=== PATIENT | female | born 1965 | race Caucasian/White ===

== ENCOUNTER → 2016-04-06 | Outpatient (CLI) | payer BC ==
--- NOTE | 2016-04-06 10:59 | CT ---
EXAMINATION TYPE: CT neck chest w con DATE OF EXAM: 04/06/2016 9:00 AM COMPARISON: CT chest 07 April 2011 HISTORY: Patient complains of chronic difficulty breathing and abnormal lab values. CT DLP: 566.9 mGycm Automated exposure control for dose reduction was used. CONTRAST: CT scan of the neck and chest is performed following with IV Contrast, patient injected with 100 mL o f Omnipaque 300. Axial images are obtained, coronal and sagittal reformatted images are reviewed. FINDINGS: Thyroid gland shows normal density. Airway: No gross abnormality seen. The level the true and false cords is normal. Parotid/submandibular glands: No gross abnormality seen. Carotid/Vascular Structures: Internal carotid arteries, common carotid arteries are patent. 3 super a ortic branch vessels are present. Collateral venous vasculature enhancement noted about the lower cer vical spine. No evident of venous stenosis centrally however. Osseous Structures: Unremarkable. Chest: There is no mediastinal, axillary, or hilar adenopathy. Bilateral breast prostheses are presen t. No endobronchial lesion, pleural or pericardial effusion. No evident lung mass. Some minimal depen dent atelectatic changes are suspected. Upper abdomen is unremarkable. Thoracic aorta is patent. No e vident aneurysm or dissection. Pulmonary arteries show no filling defects. Mild degenerative disc harini nges in the visualized spine, there are multilevel Schmorl's nodes present IMPRESSION: No abnormality evident to account for patient's symptoms.
== END | disposition home or self-care (01) ==
LOC: RADCTMAIN 08:30
PROVIDERS: ATTEND Internal Medicine Rheumatology
DX: E06.3 Autoimmune thyroiditis (principal)
CPT/HCPCS: 70491; 71260; Q9967

== ENCOUNTER → 2016-04-15 | Outpatient (CLI) | payer BC ==
[2016-04-16 14:14] LABS: C-ANCA <1:20 Titer (<1:20); P-ANCA <1:20 Titer (<1:20)
== END | disposition home or self-care (01) ==
LOC: LABWHC1 12:20
PROVIDERS: ATTEND Nurse Practitioner Family
DX: M35.9 Systemic involvement of connective tissue, unspecified (principal)
CPT/HCPCS: 36415; 86255; 86376; 86431

== ENCOUNTER → 2016-07-27 | Outpatient (CLI) | payer BC ==
--- NOTE | 2016-07-28 07:34 | MM ---
Reason for exam: screening (asymptomatic). Last mammogram was performed 1 year and 1 month ago. History: Patient is postmenopausal. Family history of breast cancer in aunt at age 60 and breast cancer in mother at age 60. Saline implants in both breasts, 2005. Implants in both breasts, 1988. Took hormonal contraceptives for 11 years beginning at age 38. Physical Findings: A clinical breast exam by your physician is recommended on an annual basis and results should be correlated with mammographic findings. MG Screening Mammo Implant/CAD Bilateral CC, MLO, and ID view(s) were taken. Prior study comparison: June 27, 2015, bilateral MG 3d screen mammo imp/cad. May 31, 2014, bilateral MG screening mammo w CAD. There are scattered fibroglandular densities. No significant changes when compared with prior studies. ASSESSMENT: Benign, BI-RAD 2 RECOMMENDATION: Routine screening mammogram of both breasts in 1 year.
== END | disposition home or self-care (01) ==
LOC: RADMAMWWP 13:01
PROVIDERS: ATTEND Family Medicine
DX: Z12.31 Encounter for screening mammogram for malignant neoplasm of breast (principal)

== ENCOUNTER 2016-12-31 10:21 | Day surgery (SDC) | payer BC ==
[2016-12-30 11:49] VITALS: BMI 21.9
[~2016-12-31 10:21] MED LIST: LACTATED RINGERS 1,000 ML IV SCH; LIDOCAINE 1% 20 ML VIAL (10MG/ML) FOR IV START INTRADERMA PRN
[2016-12-31 11:07] VITALS: RESP 16; TEMP 98.1
[2016-12-31] MEDS ORDERED: PROPOFOL 10 MG/ML 20 ML VIAL IV ONE (11:21)
[2016-12-31] MEDS ORDERED: LIDOCAINE 1% INJ 10MG/ML (20 ML MDV) ONE (11:21)
--- NOTE | 2016-12-31 11:57 | P.PCN ---
Date of Procedure: 12/31/16 Procedure(s) Performed: Procedure: Esophagogastroduodenoscopy and biopsy. Preoperative diagnosis: Globus sensation, suspected esophagitis. Postoperative diagnosis: 1. Small sliding hiatal hernia with no obvious esophagitis or complicated reflux disease. 2. Mild antral gastritis and minimal duodenitis. 3. Multiple biopsies obtained from the duodenum, antrum and esophagus. Preparation and sedation: Was provided by anesthesia. Brief clinical history: The patient is a 51-year-old female who is scheduled for this evaluation because of globus sensation that she has been experiencing for the last year or so. She denies dysphagia, odynophagia or unintentional weight loss. She has been treated for oral candidiasis without improvement. She takes PPI on and off. This evaluation is to assess for esophagitis or complicated reflux disease or other pathology. Procedure: With the patient on her left lateral decubitus position and after informed consent and adequate sedation, I passed the Olympus-GIF 160 video upper endoscope through the cricopharyngeus down the esophagus. GE junction was around 36-37 cm from the incisors and there was a small sliding hiatal hernia. The endoscope was then passed into the stomach which was insufflated with air and inspected in detail including the retroflex view in the cardia. Finally, the endoscope was passed through the pylorus into the duodenum. Pyloric channel, duodenal bulb, post bulbar area and descending duodenum showed no ulcers or erosions. There was minimal erythema in the duodenum. Antrum showed some mottling and erythema but no ulcers or erosions. The esophagus did not show any erosions, ulcers, strictures or Fine's esophagus. I obtained biopsies from the duodenum, antrum and esophagus then the endoscope was withdrawn. The patient tolerated the procedure well. Plan: The patient was reassured. Will await pathology results. She will follow -up in the office later this month and we will keep you updated on her progress.
[2016-12-31 12:05] VITALS: PULSE 55
[2016-12-31 12:51] VITALS: BP 132/53
== END 2016-12-31 12:55 | disposition home or self-care (01) ==
LOC: ORWHC2ENDO 10:21
DX: K21.0 Gastro-esophageal reflux disease with esophagitis (principal); K29.50 Unspecified chronic gastritis without bleeding; B37.0 Candidal stomatitis; K44.9 Diaphragmatic hernia without obstruction or gangrene; K29.80 Duodenitis without bleeding; E07.9 Disorder of thyroid, unspecified; Z79.82 Long term (current) use of aspirin; Z79.899 Other long term (current) drug therapy
CPT/HCPCS: 88305; 88342; 43239; J2001; J2704

== ENCOUNTER → 2017-07-28 | Outpatient (CLI) | payer BC ==
--- NOTE | 2017-07-29 14:03 | MM ---
Reason for exam: screening (asymptomatic). Last mammogram was performed 1 year ago. History: Patient is postmenopausal. Family history of breast cancer in aunt at age 60 and breast cancer in mother at age 60. Saline implants in both breasts, 2005. Implants in both breasts, 1988. Took hormonal contraceptives for 11 years beginning at age 38. Physical Findings: A clinical breast exam by your physician is recommended on an annual basis and results should be correlated with mammographic findings. MG Screening Mammo Implant/CAD Bilateral CC, MLO, and ID view(s) were taken. Prior study comparison: July 27, 2016, bilateral MG screening mammo implant/CAD. June 27, 2015, bilateral MG 3d screen mammo imp/cad. There are scattered fibroglandular densities. Bilateral implants are intact. ASSESSMENT: Benign, BI-RAD 2 RECOMMENDATION: Routine screening mammogram of both breasts.
== END | disposition home or self-care (01) ==
LOC: RADMAMWWP 09:47
PROVIDERS: ATTEND Family Medicine
DX: Z12.31 Encounter for screening mammogram for malignant neoplasm of breast (principal)
CPT/HCPCS: 77067

== ENCOUNTER → 2017-12-29 | Outpatient (CLI) | payer BC ==
--- NOTE | 2017-12-29 14:12 | CT ---
EXAMINATION TYPE: CT brain wo con DATE OF EXAM: 12/29/2017 HISTORY: posterior rt side head swelling /headaches CT DLP: 1017.9 mGycm. Automated Exposure Control for Dose Reduction was Utilized. TECHNIQUE: CT scan of the head is performed without contrast. COMPARISON: None. FINDINGS: There is no acute intracranial hemorrhage or midline shift identified. There is diffuse v entricular and sulcal prominence consistent with diffuse age-related cerebral atrophy. There is low- attenuation in the periventricular white matter consistent with chronic small vessel ischemic change. Enlarged fourth ventricle is noted out of proportion to more superior ventricular system. Etiology and significance uncertain. Correlation with old outside CT or MRI is advised. The globes are intact and the visualized sinuses are clear. IMPRESSION: No acute intracranial hemorrhage or midline shift. There is background mild diffuse age -related cerebral atrophy and chronic small vessel ischemic change noted. Prominent fourth ventricle of uncertain significance or etiology.
== END | disposition home or self-care (01) ==
LOC: RADCTMAIN 13:38
PROVIDERS: ATTEND Family Medicine
DX: G31.1 Senile degeneration of brain, not elsewhere classified (principal); I67.82 Cerebral ischemia
CPT/HCPCS: 70450

== ENCOUNTER 2018-07-05 11:23 | Emergency (ER) | payer BC ==
--- NOTE | 2018-07-05 12:37 | ED ---
General Adult HPI - General Chief complaint: Abdominal Pain Stated complaint: poss bowel obstruction Time Seen by Provider: 07/05/18 11:55 Source: patient, RN notes reviewed Mode of arrival: ambulatory Limitations: no limitations - History of Present Illness Initial comments: Patient 53-year-old female presented to the emergency room today with a chief complaint of abdominal pain. Patient was much last week. She does not that she is passed some gas but just small amounts per Dr. Earline pelaez today but was unable to have any bowel movement. Patient states that she's been expressing a headache and some upper back pain over the last week which is not unusual for persistent that the headache is gone and the back pain is improved. She states she was just using [id number] medications for this. She states that she is experiencing some lower abdominal pain today that she feels both on left right side. Patient states that this pain is new. Had in the past. She denies any complaints or symptoms at this time. Patient denies any recent fever, chills, shortness of breath, chest pain, back pain, nausea or vomiting, numbness or tingling, headaches or visual changes, or any other complaints. - Related Data Home Medications Medication Instructions Recorded Confirmed Indapamide [Lozol] 2.5 mg PO DAILY 07/05/18 07/05/18 Meclizine [Antivert] 25 mg PO TID PRN 07/05/18 07/05/18 Vitamin C/Biotin [Hair, Skin and 1 tab PO DAILY 07/05/18 07/05/18 Nails] Allergies Allergy/AdvReac Type Severity Reaction Status Date / Time No Known Allergies Allergy Verified 07/05/18 11:52 Review of Systems ROS Statement: Those systems with pertinent positive or pertinent negative responses have been documented in the HPI. ROS Other: All systems not noted in ROS Statement are negative. Past Medical History Past Medical History: Blood Disorder, GERD/Reflux, Thyroid Disorder Additional Past Medical History / Comment(s): FACTOR 5, frequent IBS symptoms, feels like lump in throat all the time, "yeast" in mouth History of Any Multi-Drug Resistant Organisms: None Reported Past Surgical History: Breast Surgery, Hysterectomy, Orthopedic Surgery Additional Past Surgical History / Comment(s): NASAL SX, HAND SX, D&C, breast implants Past Anesthesia/Blood Transfusion Reactions: No Reported Reaction Past Psychological History: Anxiety Smoking Status: Never smoker Past Alcohol Use History: None Reported Past Drug Use History: None Reported - Past Family History Mother Family Medical History: Blood Disorder, Cancer, Deep Vein Thrombosis (DVT), Pulmonary Embolus General Exam - General Exam Comments Initial Comments: General: The patient is awake and alert, in no distress, and does not appear acutely ill. Eye: There is normal conjunctiva bilaterally. No signs of icterus. Neck: The neck is supple, there is no tenderness or JVD. Cardiovascular: There is a regular rate and rhythm. No murmur, rub or gallop is appreciated. Respiratory: Lungs are clear to auscultation, respirations are non-labored, breath sounds are equal. No wheezes, stridor, rales, or rhonchi. Gastrointestinal: Admits soft on palpation. Patient does have tenderness to the left and right lower quadrants. Mild tenderness. No rebound, guarding or CVA tenderness. Musculoskeletal: Normal ROM, no tenderness. Strength 5/5. Sensation intact. Neurological: A&O x 3. CN II-XII intact, There are no obvious motor or sensory deficits. Coordination appears grossly intact. Speech is normal. Skin: Skin is warm and dry and no rashes or lesions are noted. Psychiatric: Cooperative, appropriate mood & affect, normal judgment. Limitations: no limitations Course Vital Signs 07/05/18 11:49 Temperature 98.4 F Pulse Rate 79 Respiratory 20 Rate Blood Pressure 119/75 O2 Sat by Pulse 99 Oximetry Medical Decision Making - Medical Decision Making Patient reexamined at this time shows no signs of distress. She is resting comfortably. She states that she's tried have bowel movement here in the emergency room is passing water at this time. She believes from enema which did earlier. Patient's labs been reviewed are unremarkable. Patient was offered enema here the emergency room but she has declined. She states she would like to try laxative. She'll be given magnesium citrate prior to discharge. She is advised to drink glass water with this. Advised follow-up family doctor next 2 days. Advised return to emergency room for any other concerns. - Lab Data Result diagrams: 07/05/18 12:30 07/05/18 12:30 Lab Results 07/05/18 07/05/18 Range/Units 12:30 12:30 WBC 9.6 (3.8-10.6) k/uL RBC 5.20 (3.80-5.40) m/uL Hgb 14.6 (11.4-16.0) gm/dL Hct 44.2 (34.0-46.0) % MCV 84.9 (80.0-100.0) fL MCH 28.1 (25.0-35.0) pg MCHC 33.1 (31.0-37.0) g/dL RDW 14.3 (11.5-15.5) % Plt Count 208 (150-450) k/uL Neutrophils % 87 % Lymphocytes % 8 % Monocytes % 4 % Eosinophils % 1 % Basophils % 0 % Neutrophils # 8.3 H (1.3-7.7) k/uL Lymphocytes # 0.7 L (1.0-4.8) k/uL Monocytes # 0.4 (0-1.0) k/uL Eosinophils # 0.1 (0-0.7) k/uL Basophils # 0.0 (0-0.2) k/uL Sodium 137 (137-145) mmol/L Potassium 3.5 (3.5-5.1) mmol/L Chloride 97 L (98-107) mmol/L Carbon Dioxide 33 H (22-30) mmol/L Anion Gap 7 mmol/L BUN 17 (7-17) mg/dL Creatinine 0.62 (0.52-1.04) mg/dL Est GFR (CKD-EPI)AfAm >90 (>60 ml/min/1.73 sqM) Est GFR (CKD-EPI)NonAf >90 (>60 ml/min/1.73 sqM) Glucose 111 H (74-99) mg/dL Calcium 10.3 H (8.4-10.2) mg/dL Total Bilirubin 0.6 (0.2-1.3) mg/dL AST 46 H (14-36) U/L ALT 61 H (9-52) U/L Alkaline Phosphatase 73 (38-126) U/L Total Protein 7.3 (6.3-8.2) g/dL Albumin 4.7 (3.5-5.0) g/dL Disposition Clinical Impression: Abdominal pain Disposition: HOME SELF-CARE Condition: Good Instructions (If sedation given, give patient instructions): Abdominal Pain (ED) Additional Instructions: Please use magnesium citrate with large glass water and follow-up family doctor the next 2 days. Return here to the emergency room if any symptoms increase or worsen or for any other concerns. Is patient prescribed a controlled substance at d/c from ED?: No Referrals: Giovani Lafleur DO [Primary Care Provider] - 1-2 days Time of Disposition: 14:13
[2018-07-05 12:45] LABS: Basophils % (A) 0 %; Eosinophils # (A) 0.1 k/uL (0-0.7); Eosinophils % (A) 1 %; HCT 44.2 % (34.0-46.0); HGB 14.6 gm/dL (11.4-16.0); Lymphocytes # (A) 0.7 k/uL (1.0-4.8); Lymphocytes % (A) 8 %; MCH 28.1 pg (25.0-35.0); MCHC 33.1 g/dL (31.0-37.0); MCV 84.9 fL (80.0-100.0); Mean Platelet Volume 7.9; Monocytes # (A) 0.4 k/uL (0-1.0); Monocytes % (A) 4 %; Neutrophils # (A) 8.3 k/uL (1.3-7.7); Neutrophils % (A) 87 %; Platelet Count 208 k/uL (150-450); RDW 14.3 % (11.5-15.5); WBC 9.6 k/uL (3.8-10.6)
--- NOTE | 2018-07-05 12:59 | XR ---
EXAMINATION TYPE: XR KUB DATE OF EXAM: 07/05/2018 CLINICAL DATA: 53-year-old female abdominal pain and diarrhea, PHH COMPARISON: None FINDINGS: Lung bases are clear. No evidence for free intraperitoneal air. No dilated small bowel. Scattered air and stool seen throughout the colon extending distally into the rectum. Scattered small bowel air-fluid levels are present throughout the colon. Mild overall stool burden. No suspicious calcifications identified. IMPRESSION: Mixed solid and liquid stool throughout the colon. Correlate for enteritis. No evidence for free air or bowel obstruction.
[2018-07-05 13:02] LABS: ALT 61 U/L (9-52); AST 46 U/L (14-36); Albumin 4.7 g/dL (3.5-5.0); Alkaline Phosphatase 73 U/L (38-126); Anion Gap 7 mmol/L; Blood Urea Nitrogen 17 mg/dL (7-17); Calcium 10.3 mg/dL (8.4-10.2); Carbon Dioxide 33 mmol/L (22-30); Chloride 97 mmol/L (98-107); Glucose 111 mg/dL (74-99); Potassium 3.5 mmol/L (3.5-5.1); Sodium 137 mmol/L (137-145); Total Bilirubin 0.6 mg/dL (0.2-1.3); Total Protein 7.3 g/dL (6.3-8.2)
[2018-07-05] MEDS ORDERED: MAGNESIUM CITRATE 296 ML BOTTLE PO ONE (14:13)
[2018-07-05] MEDS ORDERED: KETOROLAC 30 MG/ML 1 ML VIAL IVP STA (14:49)
[2018-07-05 15:11] VITALS: BP 123/73; PULSE 78; RESP 18; TEMP 98.2
== END 2018-07-05 15:08 | disposition home or self-care (01) ==
LOC: EC 11:23
DX: R10.31 Right lower quadrant pain (principal); R10.32 Left lower quadrant pain; R51 Headache; M54.9 Dorsalgia, unspecified; Z79.899 Other long term (current) drug therapy; Z87.19 Personal history of other diseases of the digestive system; Z53.20 Procedure and treatment not carried out because of patient's decision for unspecified reasons
CPT/HCPCS: 36415; 80053; 85025; 74018; 99284; 96374; J1885

== ENCOUNTER → 2018-08-05 | Outpatient (CLI) | payer BC ==
--- NOTE | 2018-08-08 13:31 | MM ---
Reason for exam: screening (asymptomatic). Last mammogram was performed 1 year ago. History: Patient is postmenopausal. Family history of breast cancer in aunt at age 60 and breast cancer in mother at age 60. Saline implants in both breasts, 2005. Implants in both breasts, 1988. Took hormonal contraceptives for 11 years beginning at age 38. Physical Findings: A clinical breast exam by your physician is recommended on an annual basis and results should be correlated with mammographic findings. MG 3D Screen Mammo Imp/Cad Bilateral CC, MLO, and ID view(s) were taken. Prior study comparison: July 28, 2017, bilateral MG screening mammo implant/CAD. July 27, 2016, bilateral MG screening mammo implant/CAD. The breast tissue is heterogeneously dense. This may lower the sensitivity of mammography. Bilateral saline implants. Central asymmetric density left MLO view does not persist on 3D or non-implant displacement view. No significant changes when compared with prior studies. ASSESSMENT: Benign, BI-RAD 2 RECOMMENDATION: Routine screening mammogram of both breasts in 1 year.
== END | disposition home or self-care (01) ==
LOC: RADMAMWWP 13:34
PROVIDERS: ATTEND Family Medicine
DX: Z12.31 Encounter for screening mammogram for malignant neoplasm of breast (principal)
CPT/HCPCS: 77063; 77067

== ENCOUNTER → 2018-08-15 | Outpatient (CLI) | payer BC ==
--- NOTE | 2018-08-15 12:07 | BD ---
EXAMINATION TYPE: Axial Bone Density DATE OF EXAM: 08/15/2018 COMPARISON: 12/30/2015 CLINICAL HISTORY: M 89.9 Height: 66 IN Weight: 138 LBS FRAX RISK QUESTIONS: Secondary Osteoporosis: 3. 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 PT STATES IT CAUSES TRANSLUCENT BONES. RISK FACTORS HISTORY OF: Active: YES Diet low in dairy products/other sources of calcium: YES Postmenopausal woman: AGE 41 MEDICATIONS: Osteoporosis Medications: NOT NOW Which medication: Prolia FORTEO How Long: APPROX AGE 45-48 Additional Medications: WATER PILL FOR EARS, EAR MEDICATION, PREDNISONE FOR 5 DAYS EXAM MEASUREMENTS: Bone mineral densitometry was performed using the [employer] System. Bone mineral density as measured about the Lumbar spine is: ----- L1-L4(G/cm2): 0.952 T Score Values are as follows: ----- L2: -1.8 ----- L3: -1.6 ----- L4: -2.0 ----- L1-L4: -1.9 Bone mineral density has: Increased 5.7% since study of: 12/30/2015 Bone mineral density about the R hip (g/cm2): 0.753 Bone mineral density about the L hip (g/cm2): 0.755 T Score values are as follows: -----R Neck: -2.0 -----L Neck: -2.0 -----R Total: -1.8 -----L Total: -1.9 Bone mineral density has: Increased 2.4% since study of: 12/30/2015 IMPRESSION: Osteopenia (T Score between -2.5 and -1). There is slightly increased risk of fracture and the patient may be considered for treatment. Re-Screen 2-5 years. NOTE: T-SCORE=SD OF THE YOUNG ADULT MEAN.
== END | disposition home or self-care (01) ==
LOC: RADBDWWP 08:35
PROVIDERS: ATTEND Family Medicine
DX: M85.80 Other specified disorders of bone density and structure, unspecified site (principal)
CPT/HCPCS: 77080

== ENCOUNTER → 2018-09-27 | Outpatient (CLI) | payer BC ==
--- NOTE | 2018-09-29 10:35 | MR ---
EXAMINATION TYPE: MR brain and iac wo/w con DATE OF EXAM: 09/27/2018 COMPARISON: CT brain 12/29/2017 HISTORY: Unspecified hearing loss, bilateral TECHNIQUE: Multiplanar, multisequence images of the brain and brainstem is performed without and with IV contras t, utilizing 6.5 mL intravenous Gadavist . FINDINGS: Diffusion weighted images demonstrate no evidence of a recent infarct or other diffusion ab normality. Changes of chronic sinusitis with nasal septal deviation noted. There is no evidence of cerebellopontine angle mass. No pathologic enhancement seen to suggest acoust ic schwannoma. There is central dilation of the ventricular system out of proportion to the sulci. Correlate for nor mal pressure hydrocephalus or hydrocephalus. Sella turcica has a normal appearance. There are numerous focal areas of abnormal signal seen scattered throughout the white matter bilatera lly which are nonspecific but most typical remote microvascular The craniocervical junction appears within normal limits. Post contrast images demonstrate vague sub centimeter enhancement along the anterior margin the left cerebellum which is somewhat indistinct. Th is is separate from the nerve complex. In the region of the mastoid air cells petrous ridge. This is too small to characterize may represent a area of petrous apicitis mastoiditis.. The dural venous sin uses appear patent. The visualized sinuses are clear and the globes are intact. IMPRESSION: 1. No evidence of cerebellopontine angle mass or acoustic schwannoma. Subcentimeter area of vague enh ancement along the left mastoid apex near the petrous ridge is nonspecific and too small to character ize. May be postinflammatory. Recommend 6 month follow-up for confirmation. 2. There is marked dilation of ventricular system and in particular the fourth ventricle relative to the sulci suggestive of hydrocephalus or normal pressure hydrocephalus. Correlate clinically. 3. Diffuse nonspecific white matter changes. Differential diagnosis would include demyelinating proce ss or remote ischemia. Correlate clinically. 4. There is a trace amount of fluid surrounding the optic nerves which can occasionally be associated with increased intracranial pressure or papilledema correlate clinically. No orbital flattening and the craniocervical junction is maintained.
== END | disposition home or self-care (01) ==
LOC: RADMRIMAIN 08:48
PROVIDERS: ATTEND Family Medicine
DX: R90.89 Other abnormal findings on diagnostic imaging of central nervous system (principal); I51.7 Cardiomegaly
CPT/HCPCS: 70553; A9585

== ENCOUNTER → 2019-08-17 | Outpatient (CLI) | payer BC ==
--- NOTE | 2019-08-18 13:34 | MM ---
Reason for exam: screening (asymptomatic). Last mammogram was performed 1 year ago. History: Patient is postmenopausal. Family history of breast cancer in aunt at age 60 and breast cancer in mother at age 60. Saline implants in both breasts, 2005. Implants in both breasts, 1988. Took hormonal contraceptives for 11 years beginning at age 38. Physical Findings: A clinical breast exam by your physician is recommended on an annual basis and results should be correlated with mammographic findings. MG 3D Screen Mammo Imp/Cad Bilateral CC, MLO, and ID view(s) were taken. Prior study comparison: August 05, 2018, bilateral MG 3d screen mammo imp/cad. July 28, 2017, bilateral MG screening mammo implant/CAD. The breast tissue is heterogeneously dense. This may lower the sensitivity of mammography. Bilateral breast prothesis. No significant changes when compared with prior studies. ASSESSMENT: Benign, BI-RAD 2 RECOMMENDATION: Routine screening mammogram of both breasts in 1 year.
== END | disposition home or self-care (01) ==
LOC: RADMAMWWP 07:35
PROVIDERS: ATTEND Family Medicine
DX: Z12.31 Encounter for screening mammogram for malignant neoplasm of breast (principal)
CPT/HCPCS: 77063; 77067

== ENCOUNTER → 2020-03-15 | Outpatient (CLI) | payer BC ==
--- NOTE | 2020-03-15 08:48 | US ---
EXAMINATION TYPE: US thyroid st tissue head/neck DATE OF EXAM: 03/15/2020 COMPARISON: NONE CLINICAL HISTORY: E04.1 Thyroid nodule. GLAND SIZE: Right Lobe: 4.9 x 1.4 x 1.5 cm Overall Parenchyma: Slightly heterogeneous Left Lobe: 4.4 x 1.2 x 1.6 cm Overall Parenchyma: Slightly heterogeneous Isthmus Thickness: 0.3 cm NODULES RIGHT: # of nodules measured on right: Innumerable nodules, largest two measured 1. 0.9 X 0.5 x 0.6 cm solid or almost completely solid, superior medial, anechoic nodule, which is wider than tall, with smooth margins, without echogenic foci. No prior 2. 0.4 X 0.3 x 0.6 cm solid or almost completely solid, inferior, hypoechoic nodule, which is wider than tall, with smooth margins, without echogenic foci. No prior LEFT: # of nodules measured on left: 1, multiple subcentimeter nodules largest measured 1. 0.4 X 0.3 x 0.3 cm solid or almost completely solid, mid, hypoechoic nodule, which is wider than tall, with smooth margins, without echogenic foci. No prior ISTHMUS: # of nodules measured in the isthmus: 0 Bilateral neck scanned, no evidence of lymphadenopathy. IMPRESSION: Multiple subcentimeter nodules noted bilaterally with no nodule measuring 1 cm or greater. Mild coars ening to the echotexture of the thyroid can be associated with thyroiditis. 2017 ACR TI-RADS LEVEL: TR-RADS 4 - Moderately Suspicious: Follow if > 1 cm, FNA if > 1.5 cm *Highest TI-RADS level nodule reported
== END | disposition home or self-care (01) ==
LOC: RADUSWWP 08:02
PROVIDERS: ATTEND Otolaryngology
DX: E06.9 Thyroiditis, unspecified (principal)
CPT/HCPCS: 76536

== ENCOUNTER → 2020-08-19 | Outpatient (CLI) | payer BC ==
--- NOTE | 2020-08-21 14:27 | MM ---
Reason for exam: screening (asymptomatic). Last mammogram was performed 1 year ago. History: Patient is postmenopausal. Family history of breast cancer in aunt at age 60 and breast cancer in mother at age 60. Saline implants in both breasts, 2005. Implants in both breasts, 1988. Took hormonal contraceptives for 11 years beginning at age 38. Physical Findings: A clinical breast exam by your physician is recommended on an annual basis and results should be correlated with mammographic findings. MG 3D Screen Mammo Imp/Cad Bilateral CC and MLO view(s) were taken. Prior study comparison: August 17, 2019, bilateral MG 3d screen mammo imp/cad. August 05, 2018, bilateral MG 3d screen mammo imp/cad. The breast tissue is heterogeneously dense. This may lower the sensitivity of mammography. Bilateral saline subglandular implants. Left with folds, smaller than right. Both stable, benign appearing. No significant changes when compared with prior studies. ASSESSMENT: Incomplete: need additional imaging evaluation, BI-RAD 0 RECOMMENDATION: Ultrasound of both breasts. [facility] will attempt to contact patient to return for ultrasound.
== END ==
LOC: RADMAMWWP 16:21
PROVIDERS: ATTEND Obstetrics & Gynecology Obstetrics
DX: Z12.31 Encounter for screening mammogram for malignant neoplasm of breast (principal); Z80.3 Family history of malignant neoplasm of breast
CPT/HCPCS: 77063; 77067

== ENCOUNTER → 2020-08-30 | Outpatient (CLI) | payer BC | END | disposition home or self-care (01) | DX: E04.2 Nontoxic multinodular goiter (principal) ==

== ENCOUNTER → 2020-09-18 | Outpatient (CLI) | payer BC ==
--- NOTE | 2020-09-18 14:20 | FL ---
EXAMINATION TYPE: FL barium swallow w video DATE OF EXAM: 09/18/2020 MODIFIED SWALLOW / DEGLUTITION STUDY CLINICAL HISTORY: Dysphagia. TECHNIQUE: Deglutition study is performed utilizing thin liquid barium, honey and nectar thick liqui d barium, barium thick applesauce, and barium coated cracker. COMPARISON: None. FINDINGS: The oral and pharyngeal phases show satisfactory initiation and propagation with all modali ties tested. Normal mastication is seen with solid modalities tested. There is no evidence of penet ration or aspiration with any modality tested. No significant pharyngeal residue was appreciated. 54 seconds of fluoroscopy and 0 images submitted. IMPRESSION: Normal deglutition study. Please refer to speech therapist notes for further details if necessary.
== END | disposition home or self-care (01) ==
LOC: RADFLMAIN 10:51
PROVIDERS: ATTEND Otolaryngology
DX: R13.10 Dysphagia, unspecified (principal)
CPT/HCPCS: 74230

== ENCOUNTER → 2020-09-20 | Outpatient (CLI) | payer BC ==
--- NOTE | 2020-09-23 09:38 | USB ---
Reason for exam: additional evaluation requested from abnormal screening. History: Patient is postmenopausal. Family history of breast cancer in aunt at age 60 and breast cancer in mother at age 60. Saline implants in both breasts, 2005. Implants in both breasts, 1988. Took hormonal contraceptives for 11 years beginning at age 38. Physical Findings: Nurse Summary: Patient complains of bilateral breast lumps with intermittent tenderness (nurse mj). US Breast Workup Limited KAILA Right limited breast ultrasound including focal area of concern, retroareolar and axilla demonstrates no cystic or solid lesion seen. Left limited breast ultrasound including focal area of concern, retroareolar and axilla demonstrates no cystic or solid lesion seen. These results were verbally communicated with the patient and result sheet given to the patient on 09/20/20. ASSESSMENT: Negative, BI-RAD 1 RECOMMENDATION: Return to routine screening mammogram schedule for both breasts. Manage patient on a clinical basis.
== END | disposition home or self-care (01) ==
LOC: RADUSWWP 08:15
PROVIDERS: ATTEND Obstetrics & Gynecology Obstetrics
DX: R92.8 Other abnormal and inconclusive findings on diagnostic imaging of breast (principal); Z80.3 Family history of malignant neoplasm of breast

== ENCOUNTER → 2021-02-13 | Outpatient (CLI) | payer BC ==
--- NOTE | 2021-02-13 19:24 | BD ---
EXAMINATION TYPE: Axial Bone Density DATE OF EXAM: 02/13/2021 COMPARISON: 2019 CLINICAL HISTORY: Postmenopausal screening Height: 67 Weight: 136.5 FRAX RISK QUESTIONS: Alcohol (3 or more units per day): no Family History (Parent hip fracture): no Glucocorticoids (More than 3mos): no (Ex: prednisone, prednisolone, methylprednisolone, dexamethasone, and hydrocortisone). History of Fracture in Adulthood: yes Secondary Osteoporosis: 1. Type 1 Diabetes: no 2. Hyperthyroidism: no 3. Menopause before 45: yes 4. Malnutrition: no 5. Chronic liver disease: no Rheumatoid Arthritis: no Current Tobacco Use: no RISK FACTORS HISTORY OF: Surgery to Spine/Hip(right/left)/Wrist (right/left): no Family History of Osteoporosis: no Active: Postmenopausal woman: yes Lost more than 2 inches in height since high school: no MEDICATIONS: Thyroid Medications: levothyroxine How Long: just started Additional History: EXAM MEASUREMENTS: Bone mineral densitometry was performed using the [employer] System. Bone mineral density as measured about the Lumbar spine is: ----- L1-L4(G/cm2): 0.874 T Score Values are as follows: ----- L2: -27 ----- L3: -1.9 ----- L4: -2.8 ----- L1-L4: -2.6 Bone mineral density has: decreased -8.3 % since study of: 08.15.2018 Bone mineral density about the R hip (g/cm2): 0.731 Bone mineral density about the L hip (g/cm2): 0.715 T Score values are as follows: -----R Neck: -2.2 -----L Neck: -2.3 -----R Total: -2.0 -----L Total: -2.0 Bone mineral density has: decreased -2.8 % since study of: 08.15.2018 IMPRESSION: Osteoporosis (T Score less than -2.5). There is increased fracture risk and therapy is usually indicated based on age. Re-Screen 1-2 years. NOTE: T-SCORE=SD OF THE YOUNG ADULT MEAN.
== END | disposition home or self-care (01) ==
LOC: RADBDWWP 07:57
PROVIDERS: ATTEND Family Medicine
DX: M81.0 Age-related osteoporosis without current pathological fracture (principal)
CPT/HCPCS: 77080

== ENCOUNTER → 2021-04-16 | Outpatient (CLI) | payer BC ==
[~2021-04-16] MED LIST changes: -LACTATED RINGERS 1,000 ML IV SCH; -LIDOCAINE 1% 20 ML VIAL (10MG/ML) FOR IV START INTRADERMA PRN; +SODIUM CHLORIDE 0.9% 500 ML 500 ML in EMPTY BAG 1 BAG IV PRN; +ZOLEDRONIC ACID 5 MG in SODIUM CHLORIDE 0.9% 100 ML IV NR
[2021-04-16 09:15] VITALS: BP 145/82; PULSE 84; RESP 16; TEMP 97.7
== END | disposition home or self-care (01) ==
LOC: PROCWHC3 09:03
PROVIDERS: ATTEND Internal Medicine
DX: M81.0 Age-related osteoporosis without current pathological fracture (principal)
CPT/HCPCS: 96365; J3489

== ENCOUNTER → 2021-05-14 | Outpatient (CLI) | payer BC ==
--- NOTE | 2021-05-15 11:35 | US ---
EXAMINATION TYPE: US thyroid st tissue head/neck DATE OF EXAM: 05/14/2021 COMPARISON: NONE CLINICAL HISTORY: E04.2 NONTOXIC MULTINODULAR GOITER. Nontoxic multinodular goiter. Patient takes thy roid medication. GLAND SIZE: Right Lobe: 4.3 x 1.7 x 1.1 cm Overall Parenchyma: heterogenous Left Lobe: 4.3 x 1.3 x 1.1 cm Overall Parenchyma: heterogeneous Isthmus Thickness: 0.22 cm NODULES RIGHT: # of nodules measured on right: 2 1. 1.1 X 0.9 x 0.9 cm, lower medial, solid or almost completely solid, heterogeneous/hypoechoic nod ule, which is as wide as it is tall, with smooth margins, without echogenic foci. TR 4 Prior size: Does not appear to correlate 2. 1.1 X 0.7 x 0.5 cm, upper medial, solid or almost completely solid, hypoechoic nodule, which is wider than tall, with smooth margins, without echogenic foci. Prior size: 0.9 x 0.6 x 0.5 cm LEFT: # of nodules measured on left: 1 1. 0.6 X 0.6 x 0.4 cm, mid, solid or almost completely solid, hypoechoic nodule, which is wider hemanth n tall, with ill-defined margins, without echogenic foci. Prior size: 0.4 x 0.4 x 0.2 cm ISTHMUS: # of nodules measured in the isthmus: 0 Bilateral neck scanned, no evidence of lymphadenopathy. IMPRESSION: 1. Moderately suspicious nodule right lobe thyroid. Follow-up recommended in one year. 2017 ACR TI-RADS LEVEL: *Highest TI-RADS level nodule reported
== END | disposition home or self-care (01) ==
LOC: RADUSWWP 16:47
PROVIDERS: ATTEND Internal Medicine
DX: E04.2 Nontoxic multinodular goiter (principal)
CPT/HCPCS: 76536

== ENCOUNTER → 2021-06-18 | Outpatient (CLI) | payer BC ==
--- NOTE | 2021-06-18 09:06 | MR ---
EXAMINATION TYPE: MR brain wo/w con DATE OF EXAM: 06/18/2021 COMPARISON: CT brain December 29, 2017 HISTORY: Syncope and collapse TECHNIQUE: Multiplanar, multisequence images of the brain and brainstem is performed without and with IV contras t, utilizing 6 mL intravenous Gadavist . FINDINGS: Diffusion weighted images demonstrate no evidence of a recent infarct or other diffusion ab normality. The ventricular system and cisternal spaces are normal in size and appearance. The brain volume is age appropriate. Scattered small foci of T2 hyperintensity are seen throughout the white ma tter bilaterally. Approximately 30-40 scattered lesions are seen. Lesions are nonspecific in appearan ce and distribution. Midline structures demonstrate normal morphology. The craniocervical junction appears within normal limits. Post contrast images demonstrate no abnormal enhancement. Somewhat small caliber vertebrobas ilar system is noted. The dural venous sinuses appear patent. The visualized sinuses are clear and th e globes are intact. IMPRESSION: Mild to moderate nonspecific white matter changes may be on basis of product of chronic s mall vessel ischemic change in patient of this age. Correlate for possible vertebrobasilar insufficie ncy.
== END | disposition home or self-care (01) ==
LOC: RADMRIMAIN 08:13
PROVIDERS: ATTEND Psychiatry & Neurology Neurology
DX: R55 Syncope and collapse (principal)
CPT/HCPCS: 70553; A9585

== ENCOUNTER 2021-09-08 19:56 | Emergency (ER) | payer BC ==
[2021-09-08] MEDS ORDERED: SODIUM CHLORIDE 0.9% 500 ML 500 ML IV STA (21:35)
[2021-09-08 22:15] LABS: Basophils % (A) 1 %; Eosinophils # (A) 0.1 k/uL (0-0.7); Eosinophils % (A) 1 %; HCT 44.8 % (34.0-46.0); HGB 14.3 gm/dL (11.4-16.0); Lymphocytes # (A) 0.8 k/uL (1.0-4.8); Lymphocytes % (A) 16 %; MCH 28.5 pg (25.0-35.0); MCHC 31.8 g/dL (31.0-37.0); MCV 89.4 fL (80.0-100.0); Mean Platelet Volume 7.9; Monocytes # (A) 0.3 k/uL (0-1.0); Monocytes % (A) 6 %; Neutrophils # (A) 3.9 k/uL (1.3-7.7); Neutrophils % (A) 74 %; Platelet Count 179 k/uL (150-450); RBC 5.02 m/uL (3.80-5.40); RDW 13.9 % (11.5-15.5); WBC 5.3 k/uL (3.8-10.6)
[2021-09-08 22:18] LABS: ALT 32 U/L (4-34); AST 34 U/L (14-36); African American GFR (CKD) >90 (>60 ml/min/1.73 sqM); Albumin 4.7 g/dL (3.5-5.0); Alkaline Phosphatase 82 U/L (38-126); Anion Gap 6 mmol/L; Blood Urea Nitrogen 16 mg/dL (7-17); Calcium 9.5 mg/dL (8.4-10.2); Carbon Dioxide 27 mmol/L (22-30); Chloride 104 mmol/L (98-107); Glucose 102 mg/dL (74-99); Magnesium 2.2 mg/dL (1.6-2.3); Non-African American GFR(CKD) 90 (>60 ml/min/1.73 sqM); Phosphorus 3.1 mg/dL (2.5-4.5); Potassium 3.9 mmol/L (3.5-5.1); Sodium 137 mmol/L (137-145); Total Bilirubin 0.4 mg/dL (0.2-1.3); Total Protein 7.3 g/dL (6.3-8.2)
[2021-09-08 22:19] LABS: INR 0.9 (<1.2); Partial Thromboplastin Time 24.3 sec (22.0-30.0)
[2021-09-08 22:37] VITALS: RESP 16; TEMP 98.9
--- NOTE | 2021-09-08 22:39 | CT ---
EXAMINATION TYPE: CT brain wo con DATE OF EXAM: 09/08/2021 COMPARISON: 12/29/2017 HISTORY: numbnes in feet. recent slurred speech but pt also recently chipped tooth and saying its cau sing some of the slurred speech CT DLP: 1123.4 mGycm Automated exposure control for dose reduction was used. There is enlargement of the fourth ventricle.. Fourth ventricle communicates with the basal cisterns. There is no mass effect or midline shift. No sign of intracranial hemorrhage. Calvarium is intact. IMPRESSION: There is chronic enlargement of the fourth ventricle without change. Clinical significance is not rojas ar. I do not suspect obstructive hydrocephalus. No change compared to old exam.
--- NOTE | 2021-09-08 22:58 | ED ---
Weakness HPI - General Chief complaint: Neuro Symptoms/Deficit Stated complaint: tingling in feet and toes=sent by lula lamar Time Seen by Provider: 09/08/21 21:28 Source: patient Mode of arrival: ambulatory Limitations: no limitations - Related Data Home Medications Medication Instructions Recorded Confirmed Levothyroxine Sodium 25 mcg PO DAILY 04/16/21 04/16/21 Multivitamins, Thera [Multivitamin 1 tab PO DAILY 04/16/21 04/16/21 (formulary)] Allergies Allergy/AdvReac Type Severity Reaction Status Date / Time No Known Allergies Allergy Verified 09/08/21 20:03 Review of Systems ROS Statement: Those systems with pertinent positive or pertinent negative responses have been documented in the HPI. ROS Other: All systems not noted in ROS Statement are negative. Past Medical History Past Medical History: Blood Disorder, GERD/Reflux, Thyroid Disorder Additional Past Medical History / Comment(s): FACTOR 5, frequent IBS symptoms, feels like lump in throat all the time, "yeast" in mouth. OSTEOPOROSIS. History of Any Multi-Drug Resistant Organisms: None Reported Past Surgical History: Breast Surgery, Hysterectomy, Orthopedic Surgery Additional Past Surgical History / Comment(s): NASAL SX, HAND SX, D&C, breast implants Past Anesthesia/Blood Transfusion Reactions: No Reported Reaction Past Psychological History: Anxiety Smoking Status: Never smoker - Past Family History Mother Family Medical History: Blood Disorder, Cancer, Deep Vein Thrombosis (DVT), Pulmonary Embolus General Exam Limitations: no limitations Course Vital Signs 09/08/21 09/08/21 19:57 22:35 Temperature 98.4 F 98.9 F Pulse Rate 86 65 Respiratory 20 16 Rate Blood Pressure 126/81 143/92 O2 Sat by Pulse 100 99 Oximetry Medical Decision Making - Lab Data Result diagrams: 09/08/21 21:55 09/08/21 21:55 Lab Results 09/08/21 09/08/21 09/08/21 Range/Units 21:55 21:55 21:55 WBC 5.3 (3.8-10.6) k/uL RBC 5.02 (3.80-5.40) m/uL Hgb 14.3 (11.4-16.0) gm/dL Hct 44.8 (34.0-46.0) % MCV 89.4 (80.0-100.0) fL MCH 28.5 (25.0-35.0) pg MCHC 31.8 (31.0-37.0) g/dL RDW 13.9 (11.5-15.5) % Plt Count 179 (150-450) k/uL MPV 7.9 Neutrophils % 74 % Lymphocytes % 16 % Monocytes % 6 % Eosinophils % 1 % Basophils % 1 % Neutrophils # 3.9 (1.3-7.7) k/uL Lymphocytes # 0.8 L (1.0-4.8) k/uL Monocytes # 0.3 (0-1.0) k/uL Eosinophils # 0.1 (0-0.7) k/uL Basophils # 0.0 (0-0.2) k/uL PT 10.0 (9.0-12.0) sec INR 0.9 (<1.2) APTT 24.3 (22.0-30.0) sec Sodium 137 (137-145) mmol/L Potassium 3.9 (3.5-5.1) mmol/L Chloride 104 (98-107) mmol/L Carbon Dioxide 27 (22-30) mmol/L Anion Gap 6 mmol/L BUN 16 (7-17) mg/dL Creatinine 0.75 (0.52-1.04) mg/dL Est GFR (CKD-EPI)AfAm >90 (>60 ml/min/1.73 sqM) Est GFR (CKD-EPI)NonAf 90 (>60 ml/min/1.73 sqM) Glucose 102 H (74-99) mg/dL Plasma Lactic Acid Adonay (0.7-2.0) mmol/L Calcium 9.5 (8.4-10.2) mg/dL Phosphorus 3.1 (2.5-4.5) mg/dL Magnesium 2.2 (1.6-2.3) mg/dL Total Bilirubin 0.4 (0.2-1.3) mg/dL AST 34 (14-36) U/L ALT 32 (4-34) U/L Alkaline Phosphatase 82 (38-126) U/L Troponin I (0.000-0.034) ng/mL Total Protein 7.3 (6.3-8.2) g/dL Albumin 4.7 (3.5-5.0) g/dL 09/08/21 09/08/21 Range/Units 21:55 21:55 WBC (3.8-10.6) k/uL RBC (3.80-5.40) m/uL Hgb (11.4-16.0) gm/dL Hct (34.0-46.0) % MCV (80.0-100.0) fL MCH (25.0-35.0) pg MCHC (31.0-37.0) g/dL RDW (11.5-15.5) % Plt Count (150-450) k/uL MPV Neutrophils % % Lymphocytes % % Monocytes % % Eosinophils % % Basophils % % Neutrophils # (1.3-7.7) k/uL Lymphocytes # (1.0-4.8) k/uL Monocytes # (0-1.0) k/uL Eosinophils # (0-0.7) k/uL Basophils # (0-0.2) k/uL PT (9.0-12.0) sec INR (<1.2) APTT (22.0-30.0) sec Sodium (137-145) mmol/L Potassium (3.5-5.1) mmol/L Chloride (98-107) mmol/L Carbon Dioxide (22-30) mmol/L Anion Gap mmol/L BUN (7-17) mg/dL Creatinine (0.52-1.04) mg/dL Est GFR (CKD-EPI)AfAm (>60 ml/min/1.73 sqM) Est GFR (CKD-EPI)NonAf (>60 ml/min/1.73 sqM) Glucose (74-99) mg/dL Plasma Lactic Acid Adonay 0.7 (0.7-2.0) mmol/L Calcium (8.4-10.2) mg/dL Phosphorus (2.5-4.5) mg/dL Magnesium (1.6-2.3) mg/dL Total Bilirubin (0.2-1.3) mg/dL AST (14-36) U/L ALT (4-34) U/L Alkaline Phosphatase (38-126) U/L Troponin I <0.012 (0.000-0.034) ng/mL Total Protein (6.3-8.2) g/dL Albumin (3.5-5.0) g/dL Disposition Clinical Impression: Paresthesia, Dysphagia Disposition: HOME SELF-CARE Condition: Good Instructions (If sedation given, give patient instructions): Paresthesia (ED) Is patient prescribed a controlled substance at d/c from ED?: No Referrals: Danis Sylvester MD [Primary Care Provider] - 1-2 days
[2021-09-08 23:11] VITALS: BP 127/84; PULSE 71
== END 2021-09-08 23:11 | disposition home or self-care (01) ==
LOC: EC 19:56
DX: R20.2 Paresthesia of skin (principal); R13.10 Dysphagia, unspecified; K21.9 Gastro-esophageal reflux disease without esophagitis; E07.9 Disorder of thyroid, unspecified; M81.0 Age-related osteoporosis without current pathological fracture; F41.9 Anxiety disorder, unspecified; Z79.899 Other long term (current) drug therapy
CPT/HCPCS: 36415; 70450; 80053; 83605; 83735; 84100; 84484; 85025; 85610; 85730; 93005; 99285

== ENCOUNTER → 2021-10-03 | Outpatient (CLI) | payer BC ==
--- NOTE | 2021-10-06 19:53 | MM ---
Reason for Exam: Hx of breast augmentation, asymptomatic. Last mammogram was performed 1 year(s) and 2 month(s) ago. Patient History: Menarche at age 12. First Full-Term at age 26. Left ovary removed at age 40. Right ovary removed at age 40. Hysterectomy at age 40. Postmenopausal. Hormonal Contraceptives for 11 years from age 38 until age 49. 1988, Bilateral Implants. 2005, Bilateral Implants. Maternal aunt had breast cancer, age 60. Maternal aunt had breast cancer at or over age 50. Mother had breast cancer, age 60. Risk Values: Melissa 5 year model risk: 2.4%. NCI Lifetime model risk: 15.2%. Prior Study Comparison: 08/05/2018 Bilateral Screening Mammogram, [facility]. 08/17/2019 Bilateral Screening Mammogram, [facility]. 08/19/2020 Bilateral Screening Mammogram, [facility]. Tissue Density: The breast tissue is heterogeneously dense. This may lower the sensitivity of mammography. Findings: Analyzed By CAD. Prepectoral saline implants on both sides. Chronic nodularity right axillary tail. There is nodular asymmetric density superior right MLO view and an anterior depth that appears more defined from prior and incompletely disperses on 3-D images. Further evaluation recommended. Overall Assessment: Incomplete: need additional imaging evaluation, BI-RAD 0 Management: Special View Mammogram of the right breast. Additional views right breast to include spot 3-D MLO and 3-D lateral views. Targeted right-sided ultrasound if any persisting abnormality. [facility] will attempt to contact patient to return for supplemental views and ultrasound if indicated. Electronically signed and approved by: Alan Morales M.D. Radiologist
== END | disposition home or self-care (01) ==
LOC: RADMAMWWP 09:39
PROVIDERS: ATTEND Obstetrics & Gynecology Obstetrics
DX: Z12.31 Encounter for screening mammogram for malignant neoplasm of breast (principal); Z80.3 Family history of malignant neoplasm of breast
CPT/HCPCS: 77063; 77067

== ENCOUNTER → 2021-10-09 | Outpatient (CLI) | payer BC ==
--- NOTE | 2021-10-09 10:36 | MM ---
Reason for Exam: Additional evaluation requested from abnormal screening. Last screening mammogram was performed less than 1 month ago. Patient History: Menarche at age 12. First Full-Term at age 26. Left ovary removed at age 40. Right ovary removed at age 40. Hysterectomy at age 40. Postmenopausal. Hormonal Contraceptives for 11 years from age 38 until age 49. 1988, Bilateral Implants. 2005, Bilateral Implants. Maternal aunt had breast cancer, age 60. Maternal aunt had breast cancer at or over age 50. Mother had breast cancer, age 60. Risk Values: Melissa 5 year model risk: 2.4%. NCI Lifetime model risk: 15.2%. Prior Study Comparison: 07/27/2016 Bilateral Screening Mammogram, [facility]. 07/28/2017 Bilateral Screening Mammogram, [facility]. 08/05/2018 Bilateral Screening Mammogram, [facility]. 08/17/2019 Bilateral Screening Mammogram, [facility]. 08/19/2020 Bilateral Screening Mammogram, [facility]. Tissue Density: Right: The breast tissue is heterogeneously dense. This may lower the sensitivity of mammography. Findings: Analyzed By CAD. Nodular density in question does not persist. Overall Assessment: Negative, BI-RAD 1 Management: Screening Mammogram of both breasts in 1 year. A clinical breast exam by your physician is recommended on an annual basis and results should be correlated with mammographic findings. This exam should not preclude additional follow-up of suspicious palpable abnormalities. Results were given to the patient verbally at the time of exam. Electronically signed and approved by: Cecilio Nicholson M.D. Radiologis
== END | disposition home or self-care (01) ==
LOC: RADMAMWWP 09:36
PROVIDERS: ATTEND Obstetrics & Gynecology Obstetrics
DX: R92.8 Other abnormal and inconclusive findings on diagnostic imaging of breast (principal)
CPT/HCPCS: 77061; 77065

== ENCOUNTER → 2021-12-09 | Outpatient (CLI) | payer BC ==
--- NOTE | 2021-12-11 07:35 | CT ---
EXAMINATION TYPE: CT angio head CT DLP: 2328 mGycm, Automated exposure control for dose reduction was used. DATE OF EXAM: 12/09/2021 3:31 PM COMPARISON: 09/08/2021 CT. CLINICAL INDICATION:Female, 56 years old with history of G81.91 HEMIPLEGIA, Drop attacks x 4 years TECHNIQUE: Axially acquired helical CT angiogram of the head and neck was obtained with contrast util izing 100 cc of Isovue-370 administered intravenously. Axial images are supplemented with 3D reconstr uctions which were post-processed at an independent workstation. NASCET criteria used. FINDINGS: No evidence of acute intracranial hemorrhage, mass effect, or midline shift. The sulci, and cisterns are unremarkable. Similar enlargement of the fourth ventricle. The visualized portions of the internal carotid arteries, middle cerebral arteries, anterior cerebral arteries, and posterior cerebral arteries are patent. There is hypoplastic A1 segment of the right a nterior cerebral artery. The basilar and vertebral arteries are patent. IMPRESSION: 1. No evidence of high-grade stenosis or intracranial aneurysm. 2. Anatomic variant Hypoplastic A1 right segment
== END | disposition home or self-care (01) ==
LOC: RADCTMAIN 14:27
PROVIDERS: ATTEND Psychiatry & Neurology Neurology
DX: G81.91 Hemiplegia, unspecified affecting right dominant side (principal)
CPT/HCPCS: 70496; Q9967

== ENCOUNTER → 2022-01-05 | Outpatient (CLI) | payer BC ==
--- NOTE | 2022-01-06 07:05 | US ---
EXAMINATION TYPE: US thyroid st tissue head/neck DATE OF EXAM: 01/05/2022 COMPARISON: Thyroid ultrasound 05/14/2021. CLINICAL HISTORY: E04.2 MULTINODULAR GOITER abnormal labs. GLAND SIZE: Right Lobe: 4.3 x 1.2 x 1.5 cm Overall Parenchyma: heterogenous Left Lobe: 4.1 x 1.1 x 1.2 cm Overall Parenchyma: heterogeneous Isthmus Thickness: 0.2 cm NODULES RIGHT: # of nodules measured on right: 1 1. 1.1 X 0.7 x 0.8 cm, mid, mixed cystic and solid, hypoechoic nodule, which is wider than tall, wi th smooth margins, without echogenic foci. TR 3. Prior size: 1.1 x 0.9 x 0.9 cm 2. 0.7 x 0.4 x 0.6cm, upper, solid or almost completely solid, hypoechoic nodule, which is wider hemanth n tall, with ill-defined margins, without echogenic foci. This is stable when compared to prior exami [facility]. TR 4. LEFT: # of nodules measured on left: 1 1. 0.5 X 0.2 x 0.5 cm, mid lower, solid or almost completely solid, hypoechoic nodule, which is wid er than tall, with ill-defined margins, without echogenic foci. TR 4. Prior size: 0.6 x 0.4 x 0.6 cm ISTHMUS: # of nodules measured in the isthmus: 0 Bilateral neck scanned, no evidence of lymphadenopathy. IMPRESSION: Stable bilateral thyroid nodules from prior examination. According to ACR TIRADS guidelines, no follo w-up or FNA is recommended based on size.
== END | disposition home or self-care (01) ==
LOC: RADUSWWP 16:52
PROVIDERS: ATTEND Internal Medicine
DX: E04.2 Nontoxic multinodular goiter (principal)
CPT/HCPCS: 76536

== ENCOUNTER → 2022-05-15 | Outpatient (CLI) | payer BC ==
[2022-05-15 12:07] VITALS: BP 118/71; PULSE 65; RESP 15; TEMP 98.1
== END ==
LOC: PROCWHC3 11:58
PROVIDERS: ATTEND Internal Medicine
DX: E06.3 Autoimmune thyroiditis (principal); E04.2 Nontoxic multinodular goiter; E55.9 Vitamin D deficiency, unspecified; M81.0 Age-related osteoporosis without current pathological fracture; R82.994 Hypercalciuria; H04.129 Dry eye syndrome of unspecified lacrimal gland; Z68.21 Body mass index [BMI] 21.0-21.9, adult
CPT/HCPCS: 96365; J3489

== ENCOUNTER → 2022-10-15 | Outpatient (CLI) | payer BC ==
--- NOTE | 2022-10-16 09:51 | MM ---
Reason for Exam: Hx of breast augmentation, asymptomatic. Last screening mammogram was performed 12 month(s) ago. Patient History: Menarche at age 12. First Full-Term at age 26. Left ovary removed at age 40. Right ovary removed at age 40. Hysterectomy at age 40. Postmenopausal. Hormonal Contraceptives for 11 years from age 38 until age 49. 1988, Bilateral Implants. 2005, Bilateral Implants. Maternal aunt had breast cancer, age 60. Maternal aunt had breast cancer at or over age 50. Mother had breast cancer, age 60. Risk Values: Melissa 5 year model risk: 2.5%. NCI Lifetime model risk: 14.9%. Prior Study Comparison: 08/19/2020 Bilateral Screening Mammogram, [facility]. 10/03/2021 Bilateral MG 3D screen mammo imp/cad., [facility]. 10/09/2021 Right MG 3D work up w/cad RT, [facility]. Tissue Density: The breast tissue is heterogeneously dense. This may lower the sensitivity of mammography. Findings: Analyzed By CAD. There is no suspicious group of microcalcifications or new suspicious mass in either breast.Bilateral breast implants. There is no suspicious group of microcalcifications or new suspicious mass in either breast. Overall Assessment: Benign, BI-RAD 2 Management: Screening Mammogram of both breasts in [address] [facility] will attempt to contact patient to return for supplemental views and ultrasound if indicated. Patient should continue monthly self-breast exams. A clinical breast exam by your physician is recommended on an annual basis. This exam should not preclude additional follow-up of suspicious palpable abnormalities. Note on Melissa scores and lifetime risk: 1. A Melissa score greater than 3% is considered moderate risk. If this is the case, consider specialist referral to assess eligibility for a risk reducing agent. 2. If overall lifetime risk for the development of breast cancer is 20% or higher, the patient may qualify for future screening with alternating mammogram and breast MRI. Electronically signed and approved by: Miguelito Amador DO
== END | disposition home or self-care (01) ==
LOC: RADMAMWWP 13:39
PROVIDERS: ATTEND Obstetrics & Gynecology Obstetrics
DX: Z12.31 Encounter for screening mammogram for malignant neoplasm of breast (principal); Z78.0 Asymptomatic menopausal state; Z80.3 Family history of malignant neoplasm of breast; Z98.82 Breast implant status
CPT/HCPCS: 77063; 77067

== ENCOUNTER → 2023-02-16 | Outpatient (CLI) | payer BC ==
--- NOTE | 2023-02-16 17:43 | US ---
EXAMINATION TYPE: US thyroid st tissue head/neck DATE OF EXAM: 02/16/2023 COMPARISON: 01/05/2022 CLINICAL INDICATION: Female, 57 years old with history of R13.10 DYSPHAGIA, UNSPECIFIED; F/U prior GLAND SIZE: Right Lobe: 3.9 x 1.4 x 1.4 cm Overall Parenchyma: heterogenous Left Lobe: 4.2 x 1.2 x 1.3 cm Overall Parenchyma: heterogenous Isthmus Thickness: 0.2 cm NODULES RIGHT: # of nodules measured on right: 1 1. 0.6 X 0.4 x 0.6 cm, upper, solid or almost completely solid, hypoechoic TR 4 nodule, which is wi jyoti than tall, with ill-defined margins, without echogenic foci. Prior size: 0.7 x 0.4 x 0.6 cm LEFT: # of nodules measured on left: 0 ISTHMUS: # of nodules measured in the isthmus: 0 [employer] Supervisor notes: Bilateral neck scanned, no evidence of lymphadenopathy. Bilateral thyroid heterogeneous and hypervasc ular with ill-defined sub-centimeter nodule right lobe, unchanged when compared to prior. IMPRESSION: Heterogeneous gland, possible goiter or diffuse thyroiditis with a stable solitary 6 mm TR4 nodule on the right.
== END | disposition home or self-care (01) ==
LOC: RADUSWWP 16:03
PROVIDERS: ATTEND Internal Medicine
DX: E04.1 Nontoxic single thyroid nodule (principal); R13.10 Dysphagia, unspecified
CPT/HCPCS: 76536

== ENCOUNTER → 2023-07-29 | Outpatient (CLI) | payer BC, OTHER ==
[2023-07-29 13:00] VITALS: BP 110/70; PULSE 76; RESP 14; TEMP 98
[2023-07-29] MEDS: ZOLEDRONIC ACID 5 MG in SODIUM CHLORIDE 0.9% 100 ML IV NR (13:00)
[2023-07-29] MEDS: SODIUM CHLORIDE 0.9% 500 ML 500 ML in EMPTY BAG 1 BAG IV PRN (13:01)
== END ==
LOC: PROCWHC3 12:32
PROVIDERS: ATTEND Internal Medicine
DX: M81.0 Age-related osteoporosis without current pathological fracture (principal)
CPT/HCPCS: 96365; J3489

== ENCOUNTER → 2024-07-10 | Outpatient (CLI) | payer BC ==
--- NOTE | 2024-07-10 13:56 | US ---
EXAMINATION TYPE: US thyroid st tissue head/neck DATE OF EXAM: 07/10/2024 COMPARISON: Prior thyroid ultrasound February 16, 2023 CLINICAL INDICATION: Female, 59 years old with history of E04.2 NONTOXIC MULTINODULAR GOITER; Thyroid nodule on thyroid meds. TECHNIQUE: Grayscale and color Doppler imaging of the thyroid gland. FINDINGS: GLAND SIZE: Right Lobe: 4.2 x 1.3 x 1.3 cm Overall Parenchyma: heterogeneous Left Lobe: 4.5 x 1.3 x 1.4 cm Overall Parenchyma: homogeneous Isthmus Thickness: .2 cm NODULES RIGHT: # of nodules measured on right: Ill-defined subcentimeter areas. LEFT: # of nodules measured on left: 0 ISTHMUS: # of nodules measured in the isthmus: 0 Bilateral neck scanned, no evidence of lymphadenopathy. Heterogeneous normal-sized thyroid without significant new nodule IMPRESSION: As above. Highest TI-RADS level nodule reported: 2017 ACR TI-RADS LEVEL: TI-RADS 1 - BENIGN: No FNA TI-RADS assessment score and recommendation for follow-up based on appropriate scoring and treatment protocols. TR1 Benign No FNA TR2 Not suspicious No FNA TR3: If nodule size is ? 2.5 cm, FNA is recommended. If nodule size is ? 1.5 cm, follow-up imaging at 1, 3, and 5 years is recommended. TR4: If nodule size is ? 1.5 cm, FNA is recommended. If nodule size is ? 1.0 cm, follow-up imaging at 1, 2, 3, and 5 years is recommended. TR5: If nodule size is ? 1.0 cm, FNA is recommended. If nodule size is ? 0.5 cm, annual follow-up for up to 5 years is recommended. TR 1 thyroid nodules have a 0.3 % risk of malignancy. TR 2 thyroid nodules have a 1.5 % risk of malignancy. TR 3 thyroid nodules have a 4.8 % risk of malignancy. TR 4 thyroid nodules have a 9.1 % risk of malignancy. TR 5 thyroid nodules have a 35 % risk of malignancy. [email or web address], , 07/10/2024 1:54 PM
== END | disposition home or self-care (01) ==
LOC: RADUSWWP 13:14
PROVIDERS: ATTEND Internal Medicine Rheumatology
DX: E04.2 Nontoxic multinodular goiter (principal)
CPT/HCPCS: 76536